=== PATIENT | female | born 1945 | race Caucasian/White ===

== ENCOUNTER 2018-07-30 12:45 | Outpatient (CLI) | payer MEDICARE ==
--- NOTE | 2018-07-30 14:27 | Ultrasound Report ---
Reason: LT BREAST MASTODYNIA , LT BREAST NODULE Procedure Date: 07/30/2018 Accession Number: [id number] / [id number] Procedure: US - Breast Unilateral Limited CPT Code: FULL RESULT: EXAM: Diagnostic Dig Bilat, Breast Unilateral Limited DATE: 07/30/2018 1:31 PM CLINICAL HISTORY: Left breast pain COMPARISON: 12/12/2016, 03/06/2015, 11/28/2013, 11/25/2012, 11/13/2011, 11/04/2011. BILATERAL MAMMOGRAPHY TECHNIQUE: Bilateral digital CC and MLO projections. Left true lateral. FINDINGS: There are scattered fibroglandular densities. There is a new 8 mm well-circumscribed round nodule in the 2:00 position left breast 7 cm from the nipple. Scattered benign-appearing calcifications as before. No architectural distortion or skin thickening. LEFT BREAST ULTRASOUND TECHNIQUE: Real-time scanning by the software release manager with saved static images reviewed. FINDINGS: Corresponding to the nodule seen by mammography is a 6 x 6 x 4 mm simple cyst left breast 2:00 position 7 cm from the nipple. No solid mass is seen. IMPRESSION: Benign findings RECOMMENDATION: Follow-up bilateral mammography in 12 months. BIRADS CATEGORY 2: Benign findings STANDARD QUALIFYING STATEMENTS: 1. This examination was reviewed with the aid of Computer-Aided Detection (CAD). 2. A negative or benign imaging report should not delay biopsy if clinically suspicious findings are present. Consider surgical consultation if warrented. More than 5% of cancers are not identified by imaging. 3. Dense breasts may obscure an underlying neoplasm.
== END 2018-07-30 12:46 | disposition home or self-care (01) ==
LOC: DI 12:45
PROVIDERS: ATTEND Internal Medicine
DX: N60.02 Solitary cyst of left breast (principal); N64.4 Mastodynia
CPT/HCPCS: 76642; 77066

== ENCOUNTER 2019-07-29 19:27 | Observation (INO) | payer MEDICARE, OTHER ==
[2019-07-29 20:09] LABS: BASOPHILS # (AUTO) 0.1 10^3/uL (0.0-0.1); BASOPHILS % (AUTO) 0.8 %; EOSINOPHILS # (AUTO) 0.2 10^3/uL (0.0-0.7); EOSINOPHILS % (AUTO) 2.1 %; LYMPHOCYTES % (AUTO) 33.7 %; MEAN CORPUSCULAR HEMOGLOBIN 30.4 pg (27.0-31.0); MEAN CORPUSCULAR HGB CONC 32.6 g/dL (32.0-36.0); MEAN CORPUSCULAR VOLUME 93.5 fL (81.0-99.0); MEAN PLATELET VOLUME 11.3 fL (7.9-10.8); MONOCYTES # (AUTO) 0.9 10^3/uL (0.0-1.0); MONOCYTES % (AUTO) 10.2 %; NEUTROPHILS # (AUTO) 4.7 10^3/uL (1.5-6.6); PLT - PLATELET COUNT 227 10^3/uL (130-450); RED CELL DISTRIBUTION WIDTH 13.2 % (12.0-15.0); WHITE BLOOD COUNT 8.9 x10^3/uL (4.8-10.8)
--- NOTE | 2019-07-29 20:13 | ED Physician Documentation ---
History of Present Illness - Stated complaint Stated Complaint: STROKE SYMPTOMS - Chief complaint Chief Complaint: General - Additonal information Additional information: This is a 73-year-old female with a history of tobacco use, who presents with 2 episodes of left-sided weakness and numbness. Patient states that one week ago she was at home when she suddenly developed some left-sided weakness, which was so severe that she could not move her foot despite trying. She also had numbness down the left side of her body, and she had a bit of slurred speech and potentially left-sided facial droop. This lasted around 30 minutes, and was witnessed by her who corroborates the story. After 30 minutes it resolved so patient decided that she was going to follow-up with her doctor. Today around 2 hours ago she once again developed similar numbness and weakness, but she states is not as severe as it was previously. She was driven here by her , and her symptoms improved during the ride, now she states she feels back to normal. She has never had a stroke, she denies any known history of diabetes or hypertension, though she states that she did many many years. No headache, no fever. Review of Systems Constitutional: denies: Fever Eyes: denies: Loss of vision Ears: denies: Loss of hearing Nose: denies: Rhinorrhea / runny nose Cardiac: denies: Chest pain / pressure Respiratory: denies: Dyspnea GI: denies: Abdominal Pain : denies: Dysuria Musculoskeletal: denies: Neck pain Neurologic: reports: Focal weakness Immunocompromised: denies: Immunocompromised PD PAST MEDICAL HISTORY - Past Medical History Past Medical History: Yes Cardiovascular: None Respiratory: COPD Neuro: None Endocrine/Autoimmune: None GI: None WORD PROCESSING MACHINE OPERATOR: None : None HEENT: None Psych: None Musculoskeletal: None Derm: None - Past Surgical History Past Surgical History: Yes /WORD PROCESSING MACHINE OPERATOR: Hysterectomy - Present Medications Home Medications: Ambulatory Orders Medication Instructions Recorded Confirmed Albuterol Sulfate [Proair Hfa 2 puffs INH Q4H PRN 07/30/19 07/30/19 Inhaler] Aspirin Chewable [St Pedrito 81 mg PO DAILY #30 tablet 07/30/19 Aspirin] Atorvastatin Calcium [Lipitor] 40 mg PO QPM #30 tablet 07/30/19 Nicotine 7 mg Patch [Nicoderm] 1 patch TOP DAILY #7 patch 07/30/19 amLODIPine [Norvasc] 5 mg PO DAILY #30 tablet 07/30/19 - Allergies Allergies/Adverse Reactions: Allergies Allergy/AdvReac Type Severity Reaction Status Date / Time No Known Drug Allergies Allergy Verified 07/29/19 19:47 - Social History Does the pt smoke?: Yes Smoking Status: Current every day smoker Does the pt drink ETOH?: No Does the pt have substance abuse?: No - Immunizations Immunizations are current?: No - POLST Patient has POLST: No PD ED PE NORMAL - Vitals Vital signs reviewed: Yes - General General: Alert and oriented X 3, No acute distress - HEENT HEENT: PERRL - Neck Neck: Supple, no meningeal sign - Cardiac Cardiac: RRR, No murmur - Respiratory Respiratory: Clear bilaterally - Abdomen Abdomen: Soft, Non tender, Non distended - Derm Derm: Warm and dry - Extremities Extremities: No deformity - Neuro Neuro: Other (Awake, alert, oriented to person, place, event. Speech fluent and articulate. CN: normal EOMI on H-testing, sensation to light touch intact and symmetric over V1,V2,V3. Face symmetric with smiling and eyebrow raise. No droop. Tongue protrudes in midline. All 4 quadrants of visual more in bilateral eyes are intact to finger counting. Motor: 5/5 strength with hand squeeze, finger abduction, elbow flexion and extension, shoulder abduction, hip flexion, ankle dorsiflexion and plantarflexion. Sensation: Intact to light touch over all extremities. Cerebellar: Normal finger to nose without dysmetria. Gait: Normal, narrow based gait.) - Psych Psych: Normal mood, Normal affect Results - Vitals Vitals: Oxygen O2 Source Room air - EKG (time done) 19:38 Other comments: Other comments (Rate 76, rhythm sinus. T wave inversions in the inferior and lateral leads. There is slight less than [address] elevation in V2. PVC is seen.) - Labs Labs: Laboratory Tests 07/29/19 07/29/19 07/29/19 19:57 19:57 19:57 WBC 8.9 RBC 4.60 Hgb 14.0 Hct 43.0 MCV 93.5 MCH 30.4 MCHC 32.6 RDW 13.2 Plt Count 227 MPV 11.3 H Neut # (Auto) 4.7 Lymph # (Auto) 3.0 [place] # (Auto) 0.9 Eos # (Auto) 0.2 Baso # (Auto) 0.1 Absolute Nucleated RBC 0.00 Nucleated RBC % 0.0 PT INR Sodium 142 Potassium 4.0 Chloride 104 Carbon Dioxide 27 Anion Gap 11.0 BUN 17 Creatinine 0.7 Estimated GFR (MDRD) 82 L Glucose 108 H Calcium 9.2 Total Bilirubin 0.4 AST 15 ALT 12 Alkaline Phosphatase 66 Troponin I High Sens 14.4 Total Protein 6.7 Albumin 3.8 Globulin 2.9 Albumin/Globulin Ratio 1.3 TSH 07/29/19 07/29/19 19:57 19:57 WBC RBC Hgb Hct MCV MCH MCHC RDW Plt Count MPV Neut # (Auto) Lymph # (Auto) [place] # (Auto) Eos # (Auto) Baso # (Auto) Absolute Nucleated RBC Nucleated RBC % PT 11.2 INR 1.0 Sodium Potassium Chloride Carbon Dioxide Anion Gap BUN Creatinine Estimated GFR (MDRD) Glucose Calcium Total Bilirubin AST ALT Alkaline Phosphatase Troponin I High Sens Total Protein Albumin Globulin Albumin/Globulin Ratio TSH 1.10 - Rads (name of study) CT head WO Radiology: Other (No acute abnormality) CXR Radiology: Other (No acute abnormality) PD MEDICAL DECISION MAKING - ED course Complexity details: considered differential (TIA, stroke, intracranial bleed, electrolyte abnormality, urinary tract infection) ED course: Patient presents with symptoms very concerning for TIA that have recurred once. No current deficits, she feels normal. She does have multiple risk factors for stroke and her ABCD2 score is moderate. CT head is negative, CXR negative and her work up is unremarkable other than she does have some non-specific EKG changes (but a negative troponin). Pt was admitted for an expedited work up and risk factor modification. She continued to appear well with no neurologic symptoms or exam findings at the time of admission. Departure - Departure Disposition: ED Place in Observation Clinical Impression: TIA (transient ischemic attack) Condition: Stable Discharge Date/Time: 07/29/19 23:35
[2019-07-29 20:17] LABS: ALBUMIN 3.8 g/dL (3.2-5.5); ALBUMIN/GLOBULIN RATIO 1.3 (1.0-2.2); BILIRUBIN,TOTAL 0.4 mg/dL (0.2-1.0); CALCIUM 9.2 mg/dL (8.5-10.3); CREATININE 0.7 mg/dL (0.4-1.0); TOTAL PROTEIN 6.7 g/dL (6.7-8.2)
[2019-07-29 20:28] LABS: PT - PROTHROMBIN TIME 11.2 secs (9.9-12.6)
--- NOTE | 2019-07-29 20:55 | CT Report ---
Reason: left sided weakness and numbness, resolved Procedure Date: 07/29/2019 Accession Number: [id number] / [id number] Procedure: CT - HEAD WO CPT Code: FULL RESULT: EXAM: CT HEAD EXAM DATE: 07/29/2019 08:34 PM. CLINICAL HISTORY: Left sided weakness and numbness, resolved. COMPARISON: None. TECHNIQUE: Multiaxial CT images were obtained from the foramen magnum to the vertex. Reformats: Sagittal and coronal. IV contrast: None. In accordance with CT protocol optimization, one or more of the following dose reduction techniques were utilized for this exam: automated exposure control, adjustment of mA and/or KV based on patient size, or use of iterative reconstructive technique. FINDINGS: Parenchyma: No intraparenchymal hemorrhage. No evidence of mass, midline shift, or CT findings of acute infarction. There is mild ventricular white matter hypoattenuation. Britton-white differentiation is distinct. Mild right basal ganglia mineralization. Extraaxial Spaces: Normal for age. No subdural or epidural collections identified. Ventricles: Normal in size and position. Sinuses and Orbits: Imaged paranasal sinuses, orbits, and mastoids show no significant abnormality. Bones: No evidence of fracture or calvarial defect. Other: None. IMPRESSION: No acute intracranial abnormality. RADIA
--- NOTE | 2019-07-29 20:56 | XRAY Report ---
Reason: chest pain Procedure Date: 07/29/2019 Accession Number: [id number] / [id number] Procedure: XR - Chest 1 View X-Ray CPT Code: 20212 FULL RESULT: EXAM: CHEST RADIOGRAPHY EXAM DATE: 07/29/2019 08:34 PM. CLINICAL HISTORY: Chest pain. COMPARISON: 05/30/2013 2:50 PM. TECHNIQUE: 1 view. FINDINGS: Lungs/Pleura: No focal consolidation. Biapical pleural-parenchymal scarring. No pleural effusion. No pneumothorax. Mediastinum: Within exam limitations, the cardiomediastinal contour is normal. Other: None. IMPRESSION: No acute findings. RADIA
[2019-07-29] MEDS ORDERED: ACETAMINOPHEN 325 MG TABLET PO PRN (22:14)
[2019-07-29] MEDS ORDERED: ONDANSETRON 4 MG/2 ML VIAL IVP PRN (22:14)
[2019-07-29] MEDS ORDERED: SODIUM CHLORIDE FLUSH 0.9% 10 ML SYRINGE IVP PRN (22:14)
--- NOTE | 2019-07-29 22:30 | HISTORY & PHYSICAL EXAMINATION ---
Chief Complaint - Chief Complaint Chief Complaint: Left sided weakness History of Present Illness - Admitted From Admitted From:: Home - History Obtained From Records Reviewed: Yes History obtained from: Patient, ER Physician - History of Present Illness HPI Comment/Other: This is a 73 year old female with a past medical history significant for COPD and tobacco use who presents from home today after developing left sided weakness. She states she had similar symptoms exactly one week ago. At that time, she had left sided upper and lower extremity to the point where she could move her arm or leg. She also had slurred speech at that time and her noticed the left side of her face had a droop. Her symptoms resolved after 30 minutes and so she did not head to the ER. She called her PCP to make an appointment for follow up which is scheduled on the of this month. Today, she had similar symptoms but not as severe as last week. She did not have a facial droop or slurred speech this time. She did have upper and lower extremity weakness of the left side but she was able to move her extremities a little. Once again, these symptoms occurred for 30 minutes before resolving but because this was the second episode, she seeked medical attention. She reports no prior history of hypertension, diabetes, or stroke. She does smoke 10 cigarettes a day. She tried quitting in the past by using Chantix and Nicotine patch/gum but was unsuccessful as her also smokes. She reports no headache, blurry vision, chest pain, dyspnea, numbness, tingling. In the ER, she was slightly hypertensive but otherwise her vitals were unremarkable. Her labs were unremarkable as well. CT of the head showed no acute process but did she mineralization of the right basal ganglia. She will be admitted for further management. Of note, I spoke with the patient regarding code status. She wishes to be a full code. History - Past Medical History Cardiovascular: reports: None Respiratory: reports: COPD Neuro: reports: None Endocrine/Autoimmune: reports: None GI: reports: None SUPERVISOR REFRACTORY PRODUCTS: reports: None : reports: None HEENT: reports: None Psych: reports: None Musculoskeletal: reports: None Derm: reports: None MRSA Hx?: No - Past Surgical History /SUPERVISOR REFRACTORY PRODUCTS: reports: Hysterectomy - Family & Social History Family History Comment/Other: She reports her father had lung surgery for a reason she cannot recall. He was a smoker. She does not recall any other family history. Social History Notes: She has lived on [facility] with her for the past 15 years. Two of her sons also live here. She previously lived in [facility] but is originally from [place]. She is not currently employed but previously worked as a real estate firm manager. She smokes 10 cigarettes a day for the past 55 years. Denies alcohol and drug use. - POLST Patient has POLST: No Meds/Allgy - Home Medications Home Medications: Ambulatory Orders Medication Instructions Recorded Confirmed Albuterol Sulfate [Proair Hfa 07/30/19 Inhaler] - Allergies Allergies/Adverse Reactions: Allergies Allergy/AdvReac Type Severity Reaction Status Date / Time No Known Drug Allergies Allergy Verified 07/29/19 19:47 Review of Systems - Constitutional Constitutional: reports: Weakness. denies: Fatigue, Fever, Chills - Eyes Eyes: denies: Blurred vision - Cardiovascular Cariovascular: denies: Chest pain, Edema, Exertional dyspnea, Decr. exercise tolerance - Respiratory Respiratory: denies: Cough, SOB at rest, SOB with exertion - Gastrointestinal Gastrointestinal: denies: Abdominal pain, Diarrhea, Nausea, Vomiting - Genitourinary Genitourinary: denies: Dysuria, Frequency, Urgency - Musculoskeletal Musculoskeletal: reports: Muscle weakness - Neurological Neurological: reports: Focal weakness, Abnormal gait. denies: Headache, Dizziness, Numbness - All Other Systems All Other Systems: reports: Reviewed and negative Prior Level of Functionality: Independent with ADL's. Exam - Vital Signs Vital Signs: Vital Signs x48h Temp Pulse Resp BP Pulse Ox 07/29/19 22:17 36.3 C L 87 20 116/56 L 97 07/29/19 20:50 72 16 149/88 H 97 07/29/19 20:36 16 07/29/19 19:55 88 16 136/73 H 98 07/29/19 19:44 36.6 C 81 18 157/84 H 98 - Physical Exam General Appearance: positive: No acute distress, Alert, Mild distress Eyes Bilateral: positive: Normal inspection, EOMI, Conjunctivae nml ENT: positive: ENT inspection nml Neck: positive: Nml inspection Respiratory: positive: No respiratory distress, Breath sounds nml. negative: Wheezes, Rales, Rhonchi Cardiovascular: positive: Regular rate & rhythm, No murmur. negative: Tachycardia, Bradycardia, Systolic murmur Abdomen: positive: Non-tender, No distention. negative: Tenderness, Guarding, Rebound Skin: positive: No rash, Warm, Dry Extremities: positive: Full ROM, No pedal edema Neurologic/Psychiatric: positive: Oriented x3, CN's nml (2-12), Motor nml, Sensation nml. negative: Disoriented to person, Disoriented to place, Disoriented to time, Weakness, Sensory loss, Facial droop, Slurred/abnml speech Conclusion/Plan - Problem List (1) TIA (transient ischemic attack) Conclusion/Plan: Her symptoms of left sided upper and lower extremity weakness are concerning for a TIA. Fortunately her symptoms have resolved. Her CT was negative except for mineralization of the right basal ganglia. This is now her second episode of similar symptoms occurring on the same side. - Start Aspirin 81mg and Lipitor 40mg - Carotid dopplers - Echo - Check A1c and lipid panel - Neurochecks - PT/OT - She will require MRI on outpatient basis as it is not available over the weekend at this facility (2) Hypertension Conclusion/Plan: She is hypertensive today and is not on medications. - Will start Norvasc 5mg (3) COPD (chronic obstructive pulmonary disease) Conclusion/Plan: On Proair at home. Stable. - Albuterol PRN (4) Tobacco abuse Conclusion/Plan: She continues to smoke 10 cigarettes a day for the past 55 years. Failed treatment in the past with Chantix and Nicorette gum/patch. - Nicotine patch while inpatient - Lab Results Lab results reviewed: Yes Fish Bones: 07/29/19 19:57 07/29/19 19:57 - Diagnostic Imaging Results Diagnostic Imaging Results: positive: Final report reviewed - EKG Results EKG Interpreted Independently: Yes EKG Comparison: No prior EKG EKG Findings: Sinus rhythm with occasional PVC. T-wave inversions in most leads. No pathologic Q waves noted. Core Measures - Anticipated LOS I expect patient to be DC'd or transferred within 96 hours.: Yes - Issues Hospital Issues and Management Plan: TIA requiring further workup inculding Echo, carotid dopplers. - DVT/VTE - Prophylaxis VTE/DVT Device ordered at admit?: Yes VTE/DVT Prophylaxis med ordered at admit?: Yes
[2019-07-30] MEDS ORDERED: IPRATROPIUM/ALBUTEROL 3 ML NEB INH PRN (00:21)
--- NOTE | 2019-07-30 00:26 | Ultrasound Report ---
Reason: TIA. Left sided weakness. Procedure Date: 07/29/2019 Accession Number: [id number] / [id number] Procedure: US - Carotid Doppler Complete CPT Code: FULL RESULT: EXAM: BILATERAL CAROTID AND VERTEBRAL ARTERY DUPLEX DOPPLER ULTRASOUND: EXAM DATE: 07/29/2019 11:19 PM CLINICAL HISTORY: TIA. Left-sided weakness. COMPARISON: None. TECHNIQUE: Grayscale imaging, color Doppler, and duplex spectral Doppler were used to evaluate the carotid and vertebral arteries bilaterally. Static images were obtained. FINDINGS: Irregular calcified carotid plaquing is seen bilaterally. Normal antegrade flow is present in bilateral vertebral arteries. VELOCITIES (cm/sec): Right CCA mid: PSV 68 cm/sec CCA dist: PSV 50 cm/sec ICA prox: PSV 46 cm/sec, EDV 14 cm/sec ICA mid: PSV 70.1 cm/sec, EDV 23 cm/sec ICA dist: PSV 45 cm/sec, EDV 15 cm/sec ECA: PSV 71 cm/sec Vert: PSV 46 cm/sec ICA/CCA: 1.0 Left CCA mid: PSV 89 cm/sec CCA dist: PSV 48 cm/sec ICA prox: PSV 36 cm/sec, EDV 13 cm/sec ICA mid: PSV 63 cm/sec, EDV 26 cm/sec ICA dist: PSV 40 cm/sec, EDV 15 cm/sec ECA: PSV 100 cm/sec Vert: PSV 87 cm/sec ICA/CCA: 0.7 ICA diameter stenosis: Right: <50% by velocity and <70% by NASCET criteria. Left: <50% by velocity and <70% by NASCET criteria. IMPRESSION: 1. Irregular calcified bilateral carotid artery plaquing. 2. In the right carotid artery there are no elevated carotid artery velocities to suggest hemodynamically significant stenosis. 3. In the left carotid artery there are no elevated carotid artery velocities to suggest hemodynamically significant stenosis. 4. Normal antegrade flow is present in bilateral vertebral arteries. General Recommendations: Stenosis =50% ICA - Follow-up ultrasound 6-12 months Stenosis <50% ICA - High Risk Patient with plaque - Follow-up ultrasound 1-2 years Normal Study but High Risk Patient - Follow-up ultrasound 3-5 years Management recommendations and diagnostic criteria are based on current IAC endorsed standards in Carotid Artery Stenosis: Grayscale and Doppler Ultrasound Diagnosis. Validated velocity measurements with angiographic measurements and velocity criteria are extrapolated from diameter data as defined by the Society of Radiologists in Ultrasound Consensus Conference Radiology 2003; 229;340-346. RADIA
[2019-07-30] MEDS: SODIUM CHLORIDE FLUSH 0.9% 10 ML SYRINGE IVP SCH ×3 (03:56→16:57)
[2019-07-30 04:38] LABS: BASOPHILS # (AUTO) 0.1 10^3/uL (0.0-0.1); BASOPHILS % (AUTO) 0.8 %; EOSINOPHILS # (AUTO) 0.3 10^3/uL (0.0-0.7); EOSINOPHILS % (AUTO) 3.8 %; HGB - HEMOGLOBIN 13.5 g/dL (12.0-16.0); LYMPHOCYTES # (AUTO) 2.7 10^3/uL (1.5-3.5); LYMPHOCYTES % (AUTO) 36.3 %; MEAN CORPUSCULAR HEMOGLOBIN 30.8 pg (27.0-31.0); MEAN CORPUSCULAR HGB CONC 32.9 g/dL (32.0-36.0); MEAN CORPUSCULAR VOLUME 93.6 fL (81.0-99.0); MONOCYTES # (AUTO) 0.7 10^3/uL (0.0-1.0); MONOCYTES % (AUTO) 9.9 %; NEUTROPHILS # (AUTO) 3.6 10^3/uL (1.5-6.6); NEUTROPHILS % (AUTO) 48.9 %; PLT - PLATELET COUNT 200 10^3/uL (130-450); RED BLOOD COUNT 4.38 10^6/uL (4.20-5.40); RED CELL DISTRIBUTION WIDTH 12.9 % (12.0-15.0); WHITE BLOOD COUNT 7.3 x10^3/uL (4.8-10.8)
[2019-07-30 04:55] LABS: BUN - BLOOD UREA NITROGEN 13 mg/dL (6-20); CALCIUM 8.7 mg/dL (8.5-10.3); CARBON DIOXIDE - CO2 28 mmol/L (21-32); CHLORIDE 105 mmol/L (101-111); CHOL/HDL RATIO 3.7 (<4.4); CHOLESTEROL 193 mg/dL; CREATININE 0.6 mg/dL (0.4-1.0); GFR - MDRD 98 (>89); GLUCOSE 100 mg/dL (70-100); HDL CHOLESTEROL 52 mg/dL; LDL CHOLESTEROL,CALCULATED 126 mg/dL; LDL/HDL RATIO 2.4 (<4.4); MAGNESIUM 2.2 mg/dL (1.7-2.8); SODIUM 141 mmol/L (135-145); VLDL CHOLESTEROL 15 mg/dL
[2019-07-30 05:16] LABS: HB2 TOTAL 14.2 g/dL; HEMOGLOBIN A1C 0.52 g/dL; HEMOGLOBIN A1C % 5.5 % (4.6-6.2)
[2019-07-30 08:15] VITALS: BP 126/70
[2019-07-30] MEDS ORDERED: ASPIRIN EC 81 MG TABLET PO SCH (09:00)
[2019-07-30] MEDS ORDERED: HEPARIN 5,000 UNIT/ML VIAL SUBQ SCH (09:00)
[2019-07-30] MEDS ORDERED: NICOTINE 7 MG PATCH TOP SCH (09:00)
[2019-07-30] MEDS ORDERED: amLODIPine 5 MG TABLET PO SCH (09:00)
--- NOTE | 2019-07-30 15:36 | MRI Report ---
Reason: TIAs Procedure Date: 07/30/2019 Accession Number: [id number] / [id number] Procedure: MRI - Angio Brain W/O (MRA) CPT Code: FULL RESULT: EXAM MRA BRAIN EXAM DATE: 07/30/2019 03:16 PM. CLINICAL HISTORY: 73-year-old female. TIAs. COMPARISON: CT head 07/29/2019 TECHNIQUE: Multiplanar, multisequence MRA sequences of the brain were performed. Other: None. Post-processing: Multiplanar 3D MIP reconstructions. IV Contrast: None. FINDINGS: RIGHT Internal Carotid (ICA): No aneurysm, stenosis or anomaly. Middle Cerebral (MCA): No aneurysm, stenosis or anomaly. Anterior Cerebral (MELECIO): No aneurysm, stenosis or anomaly. 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 Posterior Communicating (P-COM): Not visualized, aplastic versus markedly hypoplastic Vertebral: No aneurysm, stenosis or anomaly in the visualized upper vertebral artery. LEFT Internal Carotid (ICA): The cervical left ICA is tortuous but otherwise unremarkable. No aneurysm, stenosis or anomaly. Middle Cerebral (MCA): No aneurysm, stenosis or anomaly. Anterior Cerebral (MELECIO): No aneurysm, stenosis or anomaly. Posterior Cerebral (SHOW HOST OR HOSTESS): Tandem stenoses of the left SHOW HOST OR HOSTESS P2 and P3 segments, including severe, likely greater than 70% stenoses. Posterior Communicating (P-COM): Not visualized, aplastic versus markedly hypoplastic Vertebral: No aneurysm, stenosis or anomaly in the visualized upper vertebral artery. MIDLINE Anterior Communicating (A-COM): No aneurysm, stenosis or anomaly. Basilar Artery:No aneurysm, stenosis or anomaly. Other: None. IMPRESSION: 1. No evidence of large vessel occlusion, acute dissection, aneurysm, or vascular malformation within intracranial arteries. 2. 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 3. Tandem stenoses of the left SHOW HOST OR HOSTESS P2 and P3 segments, including severe, likely greater than 70% stenoses. RADIA
--- NOTE | 2019-07-30 15:43 | Discharge Plan ---
Discharge Plan Problem Reviewed?: Yes Disposition: Home, Self Care Condition: Stable Prescriptions: amLODIPine [Norvasc] 5 mg PO DAILY #30 tablet Aspirin Chewable [St Pedrito Aspirin] 81 mg PO DAILY #30 tablet Atorvastatin Calcium [Lipitor] 40 mg PO QPM #30 tablet Nicotine 7 mg Patch [Nicoderm] 1 patch TOP DAILY #7 patch Diet: Cardiac Activity Restrictions: Activity as Tolerated Shower Restrictions: No Driving Restrictions: No Instruction Topics: Meds Cholesterol, TIA, ED Hypertension New Begin Tx Health Concerns: Hospitalized with a recurrence of TIA (mini stroke) symptoms. Evaluation here found that you have Hypertension, elevated cholesterol and smoking cigarettes which caused blood vessel narrowing in the brain which caused the symptoms. Plan of Treatment: New medications prescribed for high BP, smoking cessation patch and high cholesterol, and were electronically sent to your [facility]. Please buy any [id number] brand of coated aspirin 81 mg or chewable baby aspirin and start taking 1 aspirin a day, lifelong. Please see your PCP in follow-up. You may need a referral to a Neurologist (brain specialist). Care Goals: Improved risk factors to decrease chance of stroke. Assessment: Discussed with patient who understood. Additional Instructions or Follow Up instructions: Please see your PCP in 5-10 days for follow-up, medication adjustments and further recommendations. If you have new or worsening symptoms, call your PCP for advice or come to the ER. No Smoking: If you smoke, Please STOP! Call for help. Follow-up with: Bridgette Vines ARNP [Primary Care Provider] -
--- NOTE | 2019-07-30 16:28 | MRI Report ---
Reason: TIA, recurrent Procedure Date: 07/30/2019 Accession Number: [id number] / [id number] Procedure: MRI - Brain W/O CPT Code: FULL RESULT: EXAM: MRI BRAIN WITHOUT CONTRAST EXAM DATE: 07/30/2019 03:16 PM. CLINICAL HISTORY: 73-year-old female. TIA, recurrent. COMPARISON: CT head 07/29/2019 TECHNIQUE: Multiplanar, multisequence T1-weighted and fluid-sensitive MR sequences of the brain were performed. Sequences optimized for routine evaluation. Other: None. IV Contrast: None. FINDINGS: Brain Volume: Mild to moderate ex-vacuo dilatation of the ventricles and sulci. Parenchyma/Dura: Subacute approximately 1 cm infarcts involving the right alberto radiata and right basal ganglia, as evidenced by foci of restricted diffusion (series 505 images 112 and 88), with normalized ADC values and associated FLAIR hyperintense signal abnormality. The infarcts are likely greater than one week old. No MRI evidence of acute infarct. No mass or hemorrhage. Moderately extensive T2/FLAIR hyperintense periventricular, deep, and subcortical white matter lesions within cerebral hemispheres bilaterally and within the antonio centrally. Chronic lacunar infarcts within basal ganglia bilaterally with chronic hemosiderin staining within the right basal ganglia (series 801 image 11). Ventricles/Cisterns: No hydrocephalus. No abnormal extra-axial fluid collection or hemorrhage. Orbits: Status post bilateral lens replacement surgery. The visualized orbits otherwise unremarkable. Sella Turcica: The pituitary gland, cavernous sinuses, suprasellar cistern and optic chiasm are unremarkable. IAC: Symmetric and unremarkable. Vasculature: Normal signal flow void is seen in the major arterial structures at the skull base. Sinuses: No acute appearing sinus disease. Bones: No focal pathologic appearing marrow signal changes. Other: None. IMPRESSION: 1. Subacute approximately 1 cm infarcts involving the right alberto radiata and right basal ganglia, as evidenced by foci of restricted diffusion (series 505 images 112 and 88), with normalized ADC values and associated FLAIR hyperintense signal abnormality. The infarcts are likely greater than one week old. 2. No MRI evidence of acute infarct. No evidence of acute intracranial hemorrhage. 3. Moderately extensive T2/FLAIR hyperintense periventricular, deep, and subcortical white matter lesions within cerebral hemispheres bilaterally and within the antonio centrally. While nonspecific, these are favored to represent sequela of chronic microangiopathy. 4. Chronic lacunar infarcts within basal ganglia bilaterally with chronic hemosiderin staining within the right basal ganglia (series 801 image 11). RADIA The critical result notification system was initiated by Dr. Benson Amaya at 04:23 PM on 07/30/2019. ADDENDUM: 07/30/19 16:28 The above critical result findings were discussed with Kae Brooks by Dr. Benson Amaya at 04:28 PM on 07/30/2019.
--- NOTE | 2019-07-30 16:51 | MRI Report ---
Reason: TIAs Procedure Date: 07/30/2019 Accession Number: [id number] / [id number] Procedure: MRI - Angio Neck W/O (MRA) CPT Code: FULL RESULT: EXAM: MR ANGIOGRAM NECK EXAM DATE: 07/30/2019 04:17 PM. CLINICAL HISTORY: 73-year-old female. TIAs. COMPARISON: MRI brain and MRA head obtained currently TECHNIQUE: Multiplanar, multisequence MRA sequences of the neck were performed. Other: None. Post-processing: Multiplanar 3D MIP reconstructions. IV Contrast: None. Evaluation of arterial stenosis is based on a NASCET method of measurement. FINDINGS: This is a limited noncontrast MRA of the neck. RIGHT Common Carotid: Patent. No dissection or significant stenosis. Internal Carotid: Patent. No dissection or significant stenosis. External Carotid: Patent. No dissection or significant stenosis. Vertebral: Patent. No dissection or significant stenosis. LEFT Common Carotid: Patent. No dissection or significant stenosis. Internal Carotid: Patent. No dissection or significant stenosis. External Carotid: Patent. No dissection or significant stenosis. Vertebral: Patent. No dissection or significant stenosis. Intracranial Circulation: Concurrently obtained MRA head is dictated separately. Other: The soft tissues, bones, and lung apices are unremarkable. IMPRESSION: 1. This is a limited noncontrast MRA of the neck. Given this limitation, no definite hemodynamically significant narrowing or occlusion. 2. Concurrently obtained MRA head is dictated separately. RADIA
[2019-07-30] MEDS ORDERED: ATORVASTATIN 40 MG TABLET PO SCH (21:00)
--- NOTE | 2019-08-01 16:00 | DISCHARGE SUMMARY ---
Discharge Summary Admit Date: 07/29/19 Discharge Date: 07/30/19 Discharging Provider: Dr Kae Brooks Primary Care Provider: Bridgette Vines NP Code Status: Attempt Resuscitation Condition at Discharge: Stable Discharge Disposition: 01 Home, Self Care - DIAGNOSES Admission Diagnoses: 1) TIA 2) Tobacco use 3) HTN, uncontrolled Discharge Diagnoses with Status of Each Condition: See below - HPI History of Present Illness: From the admission H&P of Dr Rasheed Allen: This is a 73 year old female with a past medical history significant for COPD and tobacco use who presents from home today after developing left sided weakness. She states she had similar symptoms exactly one week ago. At that time, she had left sided upper and lower extremity weakness to the point where she could not move her arm or leg. She also had slurred speech at that time and her noticed the left side of her face had a droop. Her symptoms resolved after 30 minutes and so she did not head to the ER. She called her PCP to make an appointment for follow up which is scheduled on the of this month. Today, she had similar symptoms but not as severe as last week. She did not have a facial droop or slurred speech this time. She did have upper and lower extremity weakness of the left side but she was able to move her extremities a little. Once again, these symptoms occurred for 30 minutes before resolving but because this was the second episode, she sought medical attention. She reports no prior history of hypertension, diabetes, or stroke. She does smoke 10 cigarettes a day. She tried quitting in the past by using Chantix and Nicotine patch/gum but was unsuccessful as her also smokes. She reports no headache, blurry vision, chest pain, dyspnea, numbness, tingling. In the ER, she was hypertensive but otherwise her vitals were unremarkable. Her labs were unremarkable as well. CT of the head showed no acute process but did show mineralization of the right basal ganglia. She will be admitted for further management. - HOSPITAL COURSE Hospital Course: (1) TIA (transient ischemic attack) Her symptoms of left sided upper and lower extremity weakness were consistent with a TIA. She was told she had a "mini stroke". Her CT was negative except for mineralization of the right basal ganglia. She was started on Aspirin 81mg daily and empiric Lipitor 40mg qpm. Telemetry showed no episodes of Afib. She had an Echo that showed no clot and no intra-cardiac shunt and normal LVEF. Carotid Dopplers showed bilateral plaques but no hemodynamically significant stenoses. We were fortunate to have MRI available on a Thursday at this facility, and she had a brain MRI and MRA of the head and neck. They showed chronic intracerebral microangiopathy, chronic lacunar infarcts of the basal ganglia bilaterally, a subacute infract of the right alberto radiata and rright basal ganglion (which may have been the symptom of 1 week previously), Right PENAL OFFICER, P2 and P3 segments with 70% stenosis, also Left PENAL OFFICER, P2 and P3 segments with 70% stenosis, no large vessel occlusions, no hemorrhage or mid-line shift. She was advised of her risk factors to improve, to decrease chance of recurrence and she was discharged on new daily aspirin and Lipitor. (2) Hypertension She had BPs of 150's/88, and was started on anti-hypertensive treatment with Norvasc 5mg daily, and discharged on this. (3) COPD (chronic obstructive pulmonary disease) She was using Proair at home and Albuterol PRN was ordered here, but she was stable without wheezing or a COPD exacerbation. She was advised to again stop smoking. (4) Tobacco abuse She had resumed smoking after quitting briefly, and smoked about 10 cigarettes a day for the past 55 years. A Nicotine patch was prescribed while an inpatient and at discharge. (5) Elevated cholesterol Her fasting cholesterol results showed poor control: Total cholesterol 193, LDL 126, Triglycerides 73 and HDL 52. She was put on Lipitor and was advised the dietary changes she should make. (6) PVD For the findings of vascular stenoses seen by brain MRA, she was advised to remain on daily aspirin and Lipitor and to have better HTN control. She was a dvised to have follow-up with her PCP within a week, and she may want further management with a Neurologist. - ALLERGIES Allergies/Adverse Reactions: Allergies Allergy/AdvReac Type Severity Reaction Status Date / Time No Known Drug Allergies Allergy Verified 07/29/19 19:47 - MEDICATIONS Home Medications: Ambulatory Orders Medication Instructions Recorded Confirmed Albuterol Sulfate [Proair Hfa 2 puffs INH Q4H PRN 07/30/19 07/30/19 Inhaler] Aspirin Chewable [St Pedrito 81 mg PO DAILY #30 tablet 07/30/19 Aspirin] Atorvastatin Calcium [Lipitor] 40 mg PO QPM #30 tablet 07/30/19 Nicotine 7 mg Patch [Nicoderm] 1 patch TOP DAILY #7 patch 07/30/19 amLODIPine [Norvasc] 5 mg PO DAILY #30 tablet 07/30/19 - PHYSICAL EXAM AT DISCHARGE General Appearance: positive: No acute distress Eyes Bilateral: positive: Normal inspection, PERRL ENT: positive: ENT inspection nml Neck: positive: Nml inspection, No JVD Respiratory: positive: No respiratory distress Cardiovascular: positive: Regular rate & rhythm, No murmur Abdomen: positive: Non-tender, No distention Skin: positive: Color nml Extremities: positive: No pedal edema - LABS Result Diagrams: 07/30/19 04:31 07/30/19 04:31 - DIAGNOSTIC IMAGING Diagnostic Imaging Results: Final report reviewed, Discussed with radiologist - FOLLOW UP Follow Up: See Dr Parker Kidd in 1 week, possible referral to a Neurologist. - TIME SPENT Time Spent in Discharge (Minutes): 40
== END 2019-07-30 17:15 | disposition home or self-care (01) ==
LOC: ED 19:27 → MS3 22:14
PROVIDERS: ADMIT Internal Medicine; ATTEND Internal Medicine
DX: G45.9 Transient cerebral ischemic attack, unspecified (principal); I66.23 Occlusion and stenosis of bilateral posterior cerebral arteries; I10 Essential (primary) hypertension; J44.9 Chronic obstructive pulmonary disease, unspecified; F17.210 Nicotine dependence, cigarettes, uncomplicated; E78.00 Pure hypercholesterolemia, unspecified; I73.9 Peripheral vascular disease, unspecified; Z79.899 Other long term (current) drug therapy; Z86.73 Personal history of transient ischemic attack (TIA), and cerebral infarction without residual deficits
CPT/HCPCS: 36415; 70450; 70544; 70547; 71045; 80048; 80061; 83036; 83735; 84484; 85025; 85610; 93005; 93306; 93880; 99285; A9270; G0378; 70551; 80053; 83721; 84443

== ENCOUNTER 2019-08-01 12:20 | Inpatient (IN) | payer MEDICARE, OTHER ==
[2019-08-01 13:22] LABS: BASOPHILS % (AUTO) 0.5 %; EOSINOPHILS # (AUTO) 0.1 10^3/uL (0.0-0.7); EOSINOPHILS % (AUTO) 1.5 %; HGB - HEMOGLOBIN 15.1 g/dL (12.0-16.0); LYMPHOCYTES % (AUTO) 24.6 %; MEAN CORPUSCULAR HEMOGLOBIN 30.9 pg (27.0-31.0); MEAN CORPUSCULAR VOLUME 93.6 fL (81.0-99.0); MEAN PLATELET VOLUME 11.2 fL (7.9-10.8); MONOCYTES # (AUTO) 0.7 10^3/uL (0.0-1.0); MONOCYTES % (AUTO) 8.8 %; NEUTROPHILS # (AUTO) 5.2 10^3/uL (1.5-6.6); NEUTROPHILS % (AUTO) 64.2 %; PLT - PLATELET COUNT 250 10^3/uL (130-450); RED BLOOD COUNT 4.88 10^6/uL (4.20-5.40); RED CELL DISTRIBUTION WIDTH 13.1 % (12.0-15.0); WHITE BLOOD COUNT 8.1 x10^3/uL (4.8-10.8)
[2019-08-01 13:41] LABS: ALBUMIN 3.8 g/dL (3.2-5.5); ALBUMIN/GLOBULIN RATIO 1.2 (1.0-2.2); BILIRUBIN,TOTAL 0.4 mg/dL (0.2-1.0); CALCIUM 9.5 mg/dL (8.5-10.3); CREATININE 0.6 mg/dL (0.4-1.0); TOTAL PROTEIN 7.1 g/dL (6.7-8.2)
--- NOTE | 2019-08-01 14:14 | ED Physician Documentation ---
PD HPI FOCAL NEURO - Stated complaint Stated Complaint: WEAKNESS - Chief complaint Chief Complaint: Neuro - History obtained from History obtained from: Patient, Family - History of Present Illness Severity of deficit: Moderate Weakness: Face, Arm, Leg, Left Numbness: No: Face, Arm, Hand, Leg, Foot, Right, Left, Other Associated symptoms: Headache. No: Nausea / vomiting, Seizure, Syncope, Fall, Head injury, Chest pain, Neck pain, Back pain, Fever Baseline status: positive: A&OX3, ambulatory, indep Recently seen: Admitted (2 days ago for same) - Additional information Additional information: 73-year-old female presents to the emergency department left-sided weakness and speech difficulties today. Similar symptoms were occurring on Thursday, she was admitted to the hospital, symptoms resolved and she was discharged home the next day after MRI and MRA. She states that the symptoms have been coming and going since that time but seem to stay today. She had a headache this morning as well. She states that the symptoms finally became more persistent around 11:00 this morning. Review of Systems Ten Systems: 10 systems reviewed and negative Constitutional: denies: Fever, Chills Nose: denies: Rhinorrhea / runny nose, Congestion Throat: denies: Sore throat Cardiac: denies: Chest pain / pressure Respiratory: denies: Cough GI: denies: Nausea, Vomiting, Diarrhea Skin: denies: Rash Musculoskeletal: denies: Neck pain, Back pain Neurologic: denies: Focal weakness, Numbness, Headache PD PAST MEDICAL HISTORY - Past Medical History Cardiovascular: None Respiratory: COPD Neuro: None Endocrine/Autoimmune: None GI: None BOTTLER: None : None HEENT: None Psych: None Musculoskeletal: None Derm: None - Past Surgical History Past Surgical History: Yes /BOTTLER: Hysterectomy - Present Medications Home Medications: Ambulatory Orders Medication Instructions Recorded Confirmed Albuterol Sulfate [Proair Hfa 2 puffs INH Q4H PRN 07/30/19 07/30/19 Inhaler] Aspirin Chewable [St Pedrito 81 mg PO DAILY #30 tablet 07/30/19 Aspirin] Atorvastatin Calcium [Lipitor] 40 mg PO QPM #30 tablet 07/30/19 Nicotine 7 mg Patch [Nicoderm] 1 patch TOP DAILY #7 patch 07/30/19 amLODIPine [Norvasc] 5 mg PO DAILY #30 tablet 07/30/19 - Allergies Allergies/Adverse Reactions: Allergies Allergy/AdvReac Type Severity Reaction Status Date / Time No Known Drug Allergies Allergy Verified 07/29/19 19:47 - Social History Does the pt smoke?: Yes Smoking Status: Current every day smoker Does the pt drink ETOH?: No Does the pt have substance abuse?: No - Immunizations Immunizations are current?: No - POLST Patient has POLST: No PD ED PE NORMAL - Vitals Vital signs reviewed: Yes - General General: Alert and oriented X 3, No acute distress - HEENT HEENT: PERRL, Moist mucous membranes, Pharynx benign - Neck Neck: Supple, no meningeal sign - Cardiac Cardiac: RRR - Respiratory Respiratory: No respiratory distress, Clear bilaterally - Abdomen Abdomen: Soft, Non tender, Non distended - Back Back: No spinal TTP - Derm Derm: Warm and dry - Extremities Extremities: No deformity, No tenderness to palpate - Neuro Neuro: Alert and oriented X 3 Eye Opening: Spontaneous Motor: Obeys Commands Verbal: Oriented GCS Score: 15 - Psych Psych: Normal mood, Normal affect NIHSS - Time Time: 13:20 - Level of Consciousness Level of consciousness: (0) Alert, Keenly responsive LOC Questions: (0) Answers both Q's correct LOC Commands: (0) Performs both correctly - Gaze Best Gaze: (0) Normal - Visual Visual: (0) No loss - Facial Palsy Facial Palsy: (1) Minor paralysis - Motor Arms (both separate) Motor Arm (right): (0) No drift Motor Arm (left): (1) Drift - Motor Legs (both separate) Motor Leg (right): (0) No drift Motor Leg (left): (1) Drift - Limb Ataxia Limb Ataxia: (0) Absent - Sensory Sensory: (0) Normal - Best Language Best Language: (1) [id number] - Dysarthria Dysarthria: (1) [id number] dysarthria - Extinction and Inattention (formally neg Extinction and inattention: (0) No abnormality - Total Score/Results Total Score/Result: 5 Results - Vitals Vitals: Vital Signs - 24 hr 08/01/19 08/01/19 08/01/19 12:30 13:00 14:57 Temperature 36.1 C L 36.8 C Heart Rate 83 84 77 Respiratory 18 16 22 Rate Blood Pressure 113/64 125/49 L 130/82 H O2 Saturation 96 94 94 08/01/19 16:00 Temperature Heart Rate 75 Respiratory 20 Rate Blood Pressure 138/77 H O2 Saturation 94 Oxygen O2 Source Room air - Labs Labs: Laboratory Tests 08/01/19 08/01/19 08/01/19 13:10 13:10 15:00 WBC 8.1 RBC 4.88 Hgb 15.1 Hct 45.7 MCV 93.6 MCH 30.9 MCHC 33.0 RDW 13.1 Plt Count 250 MPV 11.2 H Neut # (Auto) 5.2 Lymph # (Auto) 2.0 [place] # (Auto) 0.7 Eos # (Auto) 0.1 Baso # (Auto) 0.0 Absolute Nucleated RBC 0.00 Nucleated RBC % 0.0 Sodium 142 Potassium 4.2 Chloride 105 Carbon Dioxide 28 Anion Gap 9.0 BUN 15 Creatinine 0.6 Estimated GFR (MDRD) 98 Glucose 116 H Calcium 9.5 Total Bilirubin 0.4 AST 16 ALT 12 Alkaline Phosphatase 61 Total Protein 7.1 Albumin 3.8 Globulin 3.3 Albumin/Globulin Ratio 1.2 Lipase 24 Urine Color YELLOW Urine Clarity CLEAR Urine pH 6.5 Ur Specific [place] 1.015 Urine Protein NEGATIVE Urine Glucose (UA) NEGATIVE Urine Ketones NEGATIVE Urine Occult Blood NEGATIVE Urine Nitrite NEGATIVE Urine Bilirubin NEGATIVE Urine Urobilinogen 0.2 (NORMAL) Ur Leukocyte Esterase NEGATIVE Ur Microscopic Review NOT INDICATED Urine Culture Comments NOT INDICATED - Rads (name of study) CT head Radiology: Prelim report reviewed, EMP read contemporaneously, See rad report (Stable subtle hyperattenuation focus in the right basal ganglia. This could reflect an ischemic event that has a hemorrhagic element. A neoplastic etiology such as INDEPENDENT LIVING ADVISOR lymphoma could demonstrate restricted diffusion signal and be hyperattenuating. No discrete mass is seen in this region on the comparison MRI. ) CTA head Radiology: Prelim report reviewed, EMP read contemporaneously, See rad report CTA neck Radiology: Prelim report reviewed, EMP read contemporaneously, See rad report PD MEDICAL DECISION MAKING - ED course Complexity details: reviewed results, re-evaluated patient, considered differential, d/w patient, d/w family, d/w bi consultant ED course: 73-year-old female with what appears to be a stroke. Symptoms are not significantly improving in the emergency department. I consulted neurology, Dr. Duel, recommends repeat CT angiogram of the head and neck. If no large vessel thrombus seen, would admit as an inpatient here for further work-up. No large vessel occlusion seen. Discussed the case with Dr. Brooks, hospitalist accepts This document was made in part using voice recognition software. While efforts are made to proofread this document, sound alike and grammatical errors may occur. Departure - Departure Disposition: 66 [facility] DC/Xfer Clinical Impression: Stroke Qualifiers: CVA mechanism: unspecified Qualified Code(s): I63.9 - Cerebral infarction, unspecified Condition: Stable Discharge Date/Time: 08/01/19 18:40
--- NOTE | 2019-08-01 14:30 | CT Report ---
Reason: L sided weakness Procedure Date: 08/01/2019 Accession Number: [id number] / [id number] Procedure: CT - Head W/O Stroke Protocol CPT Code: FULL RESULT: EXAM: CT HEAD EXAM DATE: 08/01/2019 02:04 PM. CLINICAL HISTORY: Left-sided weakness. COMPARISON: HEAD W/O 07/29/2019 8:29 PM. BRAIN W/O 07/30/2019 3:16 PM. BRAIN ANGIO W/O 07/30/2019 2:59 PM. TECHNIQUE: Multiaxial CT images were obtained from the foramen magnum to the vertex. Reformats: Sagittal and coronal. IV contrast: None. In accordance with CT protocol optimization, one or more of the following dose reduction techniques were utilized for this exam: automated exposure control, adjustment of mA and/or KV based on patient size, or use of iterative reconstructive technique. FINDINGS: Again seen is a 10 x 7 mm focus of increased attenuation in the right basal ganglia. There is some restricted diffusion signal in this region on the comparison MRI of the brain. The appearance is unchanged since a comparison head CT. The ventricles are normal in size and configuration. There is no extra-axial fluid collection present. Britton-white matter differentiation is preserved. No mass is present in either visualized orbit. The calvarium is intact. Mastoid air cells are well aerated. IMPRESSION: 1. Stable subtle hyperattenuation focus in the right basal ganglia. This could reflect an ischemic event that has a hemorrhagic element. A neoplastic etiology such as BIOMEDICAL ENGINEERING PROFESSOR lymphoma could demonstrate restricted diffusion signal and be hyperattenuating. No discrete mass is seen in this region on the comparison MRI. RADIA
[2019-08-01 15:20] LABS: BILIRUBIN,URINE NEGATIVE (NEGATIVE); GLUCOSE, URINE (UA) NEGATIVE (NEGATIVE); KETONES,URINE (UA) NEGATIVE (NEGATIVE); LEUKOCYTE ESTERASE, URINE NEGATIVE (NEGATIVE); NITRITE,URINE NEGATIVE (NEGATIVE); OCCULT BLOOD,URINE NEGATIVE (NEGATIVE); PH,URINE 6.5 PH (5.0-7.5); PROTEIN,URINE NEGATIVE (NEGATIVE); UROBILINOGEN,URINE 0.2 (NORMAL) E.U./dL (NORMAL)
[2019-08-01 15:21] LABS: CLARITY,URINE CLEAR (CLEAR)
[2019-08-01] MEDS ORDERED: IOVERSOL 320 100 ML VIAL IVP ONE ×2 (15:39→17:19)
--- NOTE | 2019-08-01 16:34 | CT Report ---
Reason: L sided weakness Procedure Date: 08/01/2019 Accession Number: [id number] / [id number] Procedure: CT - ANGIO HEAD W/WO CPT Code: FULL RESULT: EXAM: CT ANGIOGRAM HEAD. CT SCAN OF THE HEAD WITHOUT AND WITH CONTRAST. EXAM DATE: 08/01/2019 03:45 PM CLINICAL HISTORY: L sided weakness. Recent right-sided putamen infarct. COMPARISON: HEAD W/O STROKE PROTOCOL 08/01/2019 2:01 PM BRAIN W/O 07/30/2019 3:16 PM HEAD W/O 07/29/2019 8:29 PM BRAIN ANGIO W/O 07/30/2019 2:59 PM. TECHNIQUE: - CT Scan Head: Using a multidetector scanner, axial images were acquired from the foramen magnum to the skull vertex following contrast administration. - CT Angiogram: Using a multidetector scanner, high-resolution axial images were acquired from the skull base through vertex following rapid infusion of intravenous contrast. Reformats: Multiplanar MIP reformats were reconstructed. Nascet criteria used for stenosis measurement. IV Contrast: OPTI 320 80ML. In accordance with CT protocol optimization, one or more of the following dose reduction techniques were utilized for this exam: automated exposure control, adjustment of mA and/or KV based on patient size, or use of iterative reconstructive technique. FINDINGS: Post Contrast Head: There is no mass, mass effect, midline shift or abnormal extraaxial fluid collection. Size and configuration of the ventricles appear normal. There is no intracranial hemorrhage. Britton white matter differentiation is maintained. 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 Brain stem and cerebellum appear unremarkable. Calvarium and skull base appear intact and normal. Orbits and extracranial soft tissue appear unremarkable. No abnormal enhancement. Britton white matter differentiation appear preserved. Dural venous sinus and deep cerebral veins appear normal. CTA HEAD: Anterior Circulation: The internal carotid arteries (ICA), middle cerebral arteries (MCA), and anterior cerebral arteries (MELECIO) are patent bilaterally. The anterior communicating artery (A-COM) appears patent. No aneurysms, stenoses, or anatomic anomalies evident. Posterior Circulation: Focal mild stenosis at the distal P2 segment left ICA and moderate stenosis at the proximal superior segment left COUNTER WAITRESS/WAITER (sagittal image 71 series 10). 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 The superior vertebral artery, basilar, and posterior cerebral arteries (COUNTER WAITRESS/WAITER) are otherwise patent. No other aneurysms, stenoses, or anomalies evident. The posterior communicating arteries (P-COM) are hypoplastic bilaterally. IMPRESSION: CT Head: 1. No abnormal enhancement to suggest mass. 2. 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 CTA Head: 1. Mild stenosis of the distal P2 segment left COUNTER WAITRESS/WAITER and moderate stenosis of the proximal superior P3 segment left COUNTER WAITRESS/WAITER. When correlated with MR angiogram 07/30/2019, signal attenuation of the distal loop machine operator seen on MR angiogram likely artifactual. 2. No significant intracranial arterial stenosis otherwise. 3. 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 RADIA
[2019-08-01] MEDS ORDERED: SODIUM CHLORIDE FLUSH 0.9% 10 ML SYRINGE IVP PRN (17:16)
[2019-08-01] MEDS ORDERED: PROCHLORPERAZINE 10 MG/2 ML VIAL IVP PRN (17:16)
[2019-08-01] MEDS ORDERED: CLOPIDOGREL 75 MG TABLET PO STA (17:20)
--- NOTE | 2019-08-01 19:19 | HISTORY & PHYSICAL EXAMINATION ---
DATE OF SERVICE: 08/01/2019 Physician: Kae Brooks MD HISTORY OF PRESENT ILLNESS: This is a 73-year-old white female with a history of smoking lifelong, COPD on 1 inhaler who developed left arm and leg weakness and dysarthria approximately 10 days ago, which lasted 30 minutes, and she did not seek medical attention. It then recurred about 1 week later, although it was not as severe and without dysarthria, and she presented to our emergency room then, because of its recurrence and was here in Observation status for workup of a TIA. An Echo done then showed normal LVEF and no clot or intracardiac shunt. She had brain MRI and MRA that showed a subacute stroke as well as microangiopathy and significant intracerebral vascular stenoses of up to 70%. She had a fasting lipid panel that showed an LDL of 137. She was started on daily aspirin and Lipitor, nicotine patch and sent home. She also had somewhat elevated blood pressure in the 150s over 80s consistently and was sent home with Amlodipine, new dose. She was compliant with all her medications. Two nights ago, she had a headache, which responded to Excedrin. This morning, after awakening and breakfast, at 11 a.m. she developed sudden onset of dysarthria, facial droop, left arm and leg weakness and it did not respond back to normal in 30 minutes and she asked her to bring her to the emergency room, which he did. She was still having her symptoms and started undergoing evaluation in the emergency room. The ER doctor reached out to [facility] at [facility], who advised that she have repeat brain vascular imaging and it was done with CT with contrast dye. This found the same stenoses in an MCA distribution, but no clot was found. Her symptoms have now lasted 6 hours. She is being admitted now as an inpatient for stroke management including PT and OT. PAST MEDICAL HISTORY 1. Smoker. 2. COPD. 3. Recent TIA. 4. Recently diagnosed HTN. ALLERGIES: NONE. MEDICATIONS 1. Amlodipine 5 mg daily. 2. Aspirin 81 mg daily. 3. Lipitor 40 mg every night. 4. ProAir inhaler p.r.n. FAMILY HISTORY: No inherited diseases. SOCIAL HISTORY: She lives with her who is also a smoker and he is a heavier smoker than she is. She quit smoking only briefly using Chantix and Wellbutrin, but has restarted. Rare alcohol use. REVIEW OF SYSTEMS: Patient started to get improvement in her left arm and leg weakness while she was in the ER after many hours, and she was helped up to a bedside commode and she reports listing to the left and falling over several times and spilling the urine from the portable commode. A comprehensive review of systems was performed and the pertinent positives are listed, the rest are negative. PHYSICAL EXAMINATION GENERAL: Elderly white female. She is in no distress. VITAL SIGNS: Blood pressure 137/91, heart rate 80 in sinus rhythm, afebrile, room air saturation 94%. HEENT: Unremarkable. Good dentition. Moist oral mucosa. NECK: Without JVD or carotid bruits. CHEST: Clear. HEART: Normal heart sounds. ABDOMEN: Soft. No organomegaly or tenderness. EXTREMITIES: No clubbing, cyanosis or edema. NEUROLOGIC: There is a tiny left lower facial droop. There is 4/5 strength of the left arm and leg, but she can now move it independently. The right side is normal. Her gait was not assessed. Her speech is now normal, not dysarthric. LABORATORY DATA: Normal electrolytes. Normal BUN and creatinine. Normal liver tests. Normal lipase. Normal CBC. Normal urinalysis. IMAGING: No chest x-ray was done. Head CT showed evidence of the old stroke. A head CTA showed no mass effect, no midline shift or hemorrhage. She has stenosis of the distal P2 segment of the left PLATE MILL HAND and moderate stenosis of the proximal superior P3 segment of the left PLATE MILL HAND. This correlates with the MR angiogram from 07/30/2019. 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 IMPRESSION/DIAGNOSES 1. Acute cerebrovascular accident. 2. History of recent transient ischemic attacks. 3. Elevated cholesterol. 4. Tobacco abuse. 5. Cerebrovascular disease. PLAN: Admit the patient to a medical/surgical bed on telemetry, watching for atrial fibrillation. If atrial fibrillation is found, she is a candidate to get anticoagulation. Continue with her anticholesterol medicine and daily baby aspirin. Add Plavix to her regimen. Hold the Amlodipine at this time to allow permissive hypertension. Begin physical therapy and occupational therapy. Continue with her nicotine patch and smoking cessation was again discussed. Swallowing evaluation is planned because of her dysarthric speech. DEEP VENOUS THROMBOSIS PROPHYLAXIS: RANCHO stockings. CODE STATUS: FULL CODE. ATTESTATION: Patient is expected to be discharged or transferred to another facility within 96 hours: Yes. cc: FÉLIX Haro TD: 08/01/2019 19:03 MTDD
[2019-08-01] MEDS: ATORVASTATIN 40 MG TABLET PO SCH (21:33)
[2019-08-01] MEDS: FAMOTIDINE 20 MG/2 ML VIAL IVP SCH (21:34)
[2019-08-01] MEDS: SODIUM CHLORIDE FLUSH 0.9% 10 ML SYRINGE IVP SCH (21:34)
[2019-08-01] MEDS ORDERED: ALBUTEROL NEB 2.5 MG/3 ML INH PRN (23:54)
[2019-08-02] MEDS: ASPIRIN CHEW 81 MG TABLET PO SCH (08:45)
[2019-08-02] MEDS: CLOPIDOGREL 75 MG TABLET PO SCH (08:46)
[2019-08-02] MEDS: FAMOTIDINE 20 MG/2 ML VIAL IVP SCH (08:46)
[2019-08-02] MEDS: NICOTINE 7 MG PATCH TOP SCH (08:46)
[2019-08-02] MEDS: SODIUM CHLORIDE FLUSH 0.9% 10 ML SYRINGE IVP SCH ×2 (08:47→18:22)
--- NOTE | 2019-08-02 17:55 | PROVIDER PROGRESS NOTE ---
Subjective - Prog Note Date Prog Note Date: 08/02/19 Prog Note Time: 17:51 - Subjective Pt reports feeling: Improved Subjective: While she reports being improved, she is still tired, and starting to get anxious about what is happened to her. Her left body (left arm, waist area, left leg) will feel intermittently heavy. That improved last night, but it is back again this morning. She also is very off balance. But she is alert, able to swallow, able to stand with help to walk to the bathroom. Current Medications - Current Medications Current Medications: Active Medications Albuterol () 2.5 mg INH RTQ4H PRN PRN Reason: Wheezing Aspirin (St Pedrito Aspirin) 81 mg PO DAILY [facility] Last Admin: 08/02/19 08:45 Dose: 81 mg Atorvastatin Calcium (Lipitor) 40 mg PO QPM [facility] Last Admin: 08/01/19 21:33 Dose: 40 mg Clopidogrel Bisulfate (Plavix) 75 mg PO DAILY [facility] Last Admin: 08/02/19 08:46 Dose: 75 mg Famotidine (Pepcid) 20 mg IVP DAILY [facility] Last Admin: 08/02/19 08:46 Dose: 20 mg Nicotine (Nicoderm) 1 patch TOP DAILY [facility] Last Admin: 08/02/19 08:46 Dose: 1 patch Prochlorperazine Edisylate (Compazine Inj) 10 mg IVP Q6HR PRN PRN Reason: Nausea / Vomiting Sodium Chloride (Normal Saline Flush 0.9%) 10 ml IVP PRN PRN PRN Reason: NEEDED PER PROVIDER ORDERS Sodium Chloride (Normal Saline Flush 0.9%) 10 ml IVP 0100,0900,1700 [facility] Last Admin: 08/02/19 08:47 Dose: 10 ml Albuterol Sulfate [Proair Hfa Inhaler] 2 puffs INH Q4H PRN 07/30/19 Budesonide/Formoterol Fumarate [Symbicort 80-4.5 Mcg Inhaler] 2 puffs INH BID 08/02/19 Objective - Vital Signs/Intake & Output Reviewed Vital Signs: Yes Vital Signs: Vital Signs x48h Temp Pulse Pulse Pulse Pulse Pulse Resp 08/02/19 15:55 36.6 C 76 18 08/02/19 13:40 36.8 C 82 16 08/02/19 11:32 36.8 C 61 14 08/02/19 10:47 08/02/19 10:20 08/02/19 10:15 82 85 78 BP BP BP BP Pulse Ox 08/02/19 15:55 131/73 H 95 08/02/19 13:40 96 08/02/19 11:32 140/65 H 95 08/02/19 10:47 117/54 L 08/02/19 10:20 121/74 08/02/19 10:15 117/54 L 121/74 121/65 Intake & Output: Intake & Output 07/30/19 07/31/19 08/01/19 08/02/19 23:59 23:59 23:59 23:59 Intake Total 500 560 Output Total 150 490 Balance 350 70 - Objective General Appearance: positive: No acute distress, Alert Eyes Bilateral: positive: Other (right pupil slightly smaller than left but responsive to light) ENT: positive: Pharynx nml Neck: positive: No JVD. negative: Stiff neck, Carotid bruit Respiratory: positive: Chest non-tender. negative: Wheezes, Rales, Rhonchi Cardiovascular: positive: Regular rate & rhythm. negative: Gallop/S4, Friction rub Abdomen: positive: Non-tender, No organomegaly, Nml bowel sounds, No distention Skin: positive: Warm, Dry Extremities: positive: No pedal edema Neurologic/Psychiatric: positive: Oriented x3, CN's nml (2-12). negative: Motor nml (left arm 4+/5, with right arm 5/5 left leg 3+/5 with right leg 5/5) - Lab Results Fish Bones: 08/01/19 13:10 08/01/19 13:10 ABX Reporting Has patient been on IV antibiotics over the past 48 hours?: No Assessment/Plan - Problem List (1) Basal ganglia stroke Impression: right side. Plan: continue ASA, Plavix, statin, BP control with PT/OT check lipid panel (2) Tobacco abuse Impression: agress to stop smoking. (3) Hypertension Impression: 117-140 today. No change in meds. Qualifiers: Hypertension type: essential hypertension Qualified Code(s): I10 - Essential (primary) hypertension
--- NOTE | 2019-08-02 19:19 | CT Report ---
Reason: L sided weakness Procedure Date: 08/01/2019 Accession Number: [id number] / [id number] Procedure: CT - ANGIO NECK W CPT Code: FULL RESULT: EXAM: CT ANGIOGRAM NECK EXAM DATE: 08/01/2019 03:45 PM. CLINICAL HISTORY: Left-sided weakness. COMPARISON: Concurrent CT angiogram head; HEAD W/O STROKE PROTOCOL 08/01/2019 2:01 PM. TECHNIQUE: Routine axial helical imaging was performed from the skull base through the aortic arch. Reconstructions: Routine multiplanar 3D MIP reconstructions. IV Contrast: OPTI 320 80ML. Evaluation of arterial stenosis is based on a NASCET method of measurement. In accordance with CT protocol optimization, one or more of the following dose reduction techniques were utilized for this exam: automated exposure control, adjustment of mA and/or KV based on patient size, or use of iterative reconstructive technique. Findings: Relevant images are indicated (image number, series number). Aortic arch: Patent, normal configuration of the great vessels, no atherosclerotic disease. Left carotid artery: Patent with only mild atherosclerotic disease. Right carotid artery: Patent with only mild atherosclerotic disease. Left vertebral artery: Patent. Right vertebral artery: Patent. Limited evaluation lung apices demonstrates scattered centrilobular emphysema, right apical scar with calcification present. Soft tissue neck negative, airway patent, thyroid not enlarged. Advanced multilevel cervical spondylosis present. Impressions: 1. Widely patent aortic arch, bilateral carotid and vertebral arteries. 2. Prominent right apical scarring with centrilobular emphysema. 3. Advanced multilevel cervical spondylosis. 4. Soft tissue neck negative. RADIA
[2019-08-02] MEDS: ATORVASTATIN 40 MG TABLET PO SCH (21:25)
[2019-08-03] MEDS: SODIUM CHLORIDE FLUSH 0.9% 10 ML SYRINGE IVP SCH ×3 (00:14→18:01)
--- NOTE | 2019-08-03 07:45 | PROVIDER PROGRESS NOTE ---
Subjective - Prog Note Date Prog Note Date: 08/03/19 Prog Note Time: 15:16 - Subjective Pt reports feeling: No change Current Medications - Current Medications Current Medications: Active Medications Albuterol () 2.5 mg INH RTQ4H PRN PRN Reason: Wheezing Last Admin: 08/03/19 07:31 Dose: 2.5 mg Aspirin (St Pedrito Aspirin) 81 mg PO DAILY [facility] Last Admin: 08/02/19 08:45 Dose: 81 mg Atorvastatin Calcium (Lipitor) 40 mg PO QPM [facility] Last Admin: 08/02/19 21:25 Dose: 40 mg Clopidogrel Bisulfate (Plavix) 75 mg PO DAILY [facility] Last Admin: 08/02/19 08:46 Dose: 75 mg Famotidine (Pepcid) 20 mg IVP DAILY [facility] Last Admin: 08/02/19 08:46 Dose: 20 mg Nicotine (Nicoderm) 1 patch TOP DAILY [facility] Last Admin: 08/02/19 08:46 Dose: 1 patch Prochlorperazine Edisylate (Compazine Inj) 10 mg IVP Q6HR PRN PRN Reason: Nausea / Vomiting Sodium Chloride (Normal Saline Flush 0.9%) 10 ml IVP PRN PRN PRN Reason: NEEDED PER PROVIDER ORDERS Sodium Chloride (Normal Saline Flush 0.9%) 10 ml IVP 0100,0900,1700 [facility] Last Admin: 08/03/19 00:14 Dose: 10 ml Albuterol Sulfate [Proair Hfa Inhaler] 2 puffs INH Q4H PRN 07/30/19 Budesonide/Formoterol Fumarate [Symbicort 80-4.5 Mcg Inhaler] 2 puffs INH BID 08/02/19 Objective - Vital Signs/Intake & Output Reviewed Vital Signs: Yes Vital Signs: Vital Signs x48h Temp Pulse Pulse Resp BP Pulse Ox 08/03/19 07:38 36.5 C 104 H 100 17 134/75 H 94 08/03/19 04:46 36.7 C 54 L 16 131/67 H 94 08/03/19 00:21 36.4 C L 78 18 147/69 H 94 Intake & Output: Intake & Output 07/31/19 08/01/19 08/02/19 08/03/19 23:59 23:59 23:59 23:59 Intake Total 500 960 100 Output Total 150 490 Balance 350 470 100 - Objective General Appearance: positive: No acute distress, Alert Eyes Bilateral: positive: Other (same slightly irregular size right pupil from left but accomodates.) ENT: positive: Pharynx nml Neck: positive: No JVD Respiratory: positive: Chest non-tender. negative: Wheezes, Rales, Rhonchi Cardiovascular: positive: Regular rate & rhythm, Systolic murmur. negative: Gallop/S4, Friction rub Abdomen: positive: Non-tender, No organomegaly, Nml bowel sounds, No distention Skin: positive: Warm, Dry Neurologic/Psychiatric: positive: Oriented x3, CN's nml (2-12), Facial droop (slight today and not present yesterday), Other (seen by OT: Pt is seated in chair, agreeable to therapy but does report feeling fatigued and fatiguing much faster now than compared to baseline. Pt demonstrates decreased strength and pr oprioception in LUE compared to RUE, as well as impaired sitting balance during dynamic sitting or when sitting balance is challenged. Pt is pleasant and motivated to participate w/ therapies in order to return home at [facility]. Pt has good family support. Pt is a good candidate for inpatient rehab services, if this is not an option then pt would benefit from swing bed or SNF for continued therapy services in order to facilitate safe and successful return to [facility]. PT: Pt. is a pleasant, well motivated 73 y.o. F, s/p Acute CVA w/Left side weakness and decreased proprioception; she presents at high risk for falling at this time demonstrating delays in AROM timeliness/precision of path for L U/LE; she is ambulatory w/FWW, requring cga and multiple skilled cues for L LE placement and for balance; pt. needs continued sessions of PT while in the hospital, progressing her functional activity and balance.). negative: Motor nml (left arm and left leg still w same weakness from yesterday, no change. can spontaneously gesture and use arms, legs), Slurred/abnml speech - Lab Results Fish Bones: 08/01/19 13:10 08/01/19 13:10 ABX Reporting Has patient been on IV antibiotics over the past 48 hours?: No Assessment/Plan - Problem List (1) Basal ganglia stroke Impression: right side of brain with left body involvement, ataxia, occ facial droop. she is angry she did not receive tpa. I explained that she described waxing and waning symptoms for days and that once they symptoms were permanent as of 11 am that day, she was not a candidate for tpa. I also carefully explained that the decision was not made unliaterally by ER but by consultation with [facility] Tele neurology. She is not happy and feels that she should still have received it. Plan: continue ASA, Plavix, statin, BP control with PT/OT check lipid panel when fasting. review with PT today's progress and see which neurorehab unit is nearby. (2) Tobacco abuse Impression: agrees to stop smoking. (3) Hypertension Impression: 131-147 today. No change in meds. Qualifiers: Hypertension type: essential hypertension Qualified Code(s): I10 - Essential (primary) hypertension
[2019-08-03] MEDS: CLOPIDOGREL 75 MG TABLET PO SCH (09:45)
[2019-08-03] MEDS: NICOTINE 7 MG PATCH TOP SCH (09:45)
[2019-08-03] MEDS: FAMOTIDINE 20 MG/2 ML VIAL IVP SCH (09:45)
[2019-08-03] MEDS: ASPIRIN CHEW 81 MG TABLET PO SCH (09:45)
[2019-08-03] MEDS: BUDESONIDE 0.5 MG/2 ML NEB INH SCH (19:45)
[2019-08-03] MEDS: FORMOTEROL FUMARATE NEB 20 MCG/2 ML INH SCH (19:45)
[2019-08-03] MEDS: DOCUSATE SODIUM 250 MG CAPSULE PO SCH (20:40)
[2019-08-03] MEDS: POLYETHYLENE GLYCOL 3350 17 GM PACKET PO SCH (20:40)
[2019-08-03] MEDS: ATORVASTATIN 40 MG TABLET PO SCH (20:40)
[2019-08-03] MEDS: SENNA 8.6 MG TABLET PO SCH (20:40)
[2019-08-04] MEDS: SODIUM CHLORIDE FLUSH 0.9% 10 ML SYRINGE IVP SCH ×2 (01:07→08:47)
[2019-08-04 05:25] LABS: CHOL/HDL RATIO 3.3 (<4.4); CHOLESTEROL 158 mg/dL; HDL CHOLESTEROL 48 mg/dL; LDL CHOLESTEROL,CALCULATED 79 mg/dL; LDL/HDL RATIO 1.6 (<4.4); VLDL CHOLESTEROL 31 mg/dL
[2019-08-04] MEDS: BUDESONIDE 0.5 MG/2 ML NEB INH SCH (07:33)
[2019-08-04] MEDS: FORMOTEROL FUMARATE NEB 20 MCG/2 ML INH SCH (07:33)
[2019-08-04] MEDS: NICOTINE 7 MG PATCH TOP SCH (08:45)
[2019-08-04] MEDS: ASPIRIN CHEW 81 MG TABLET PO SCH (08:47)
[2019-08-04] MEDS: FAMOTIDINE 20 MG/2 ML VIAL IVP SCH (08:47)
[2019-08-04] MEDS: CLOPIDOGREL 75 MG TABLET PO SCH (08:47)
[2019-08-04] MEDS: SENNA 8.6 MG TABLET PO SCH (08:47)
[2019-08-04] MEDS: POLYETHYLENE GLYCOL 3350 17 GM PACKET PO SCH (08:51)
[2019-08-04] MEDS: DOCUSATE SODIUM 250 MG CAPSULE PO SCH (08:52)
[2019-08-04 09:25] VITALS: BP 134/66
--- NOTE | 2019-08-04 10:21 | Discharge Plan ---
Discharge Plan Problem Reviewed?: Yes Disposition: 02 Transfer Acute Care Hosp Condition: Stable Diet: Cardiac Activity Restrictions: Activity as Tolerated Assistance Devices: Walker Instruction Topics: Stroke Resources Support, Stroke Dc Health Concerns: You came to our emergency room because you were having waxing and waning symptoms of left body heaviness in your left arm and left leg. You were also off balance. This was the third episode of these problems in over a week. With the first episode it lasted so quickly that you stayed home. With the second episode you were admitted to the hospital, diagnosed with a transient ischemic attack, and sent home on aspirin, Plavix, and a cholesterol pill. This is now your third episode. It has been going on since your 07/30/19 discharge, off and on. On the day of this admission your symptoms had been permanently present since about 11 in the morning. During your stay, you were presented to the neurologist at [facility]. Since you had already had a work-up with your previous admission, they requested that we repeat your CT of head and angiogram of your head. You had the same right basal ganglia stroke (a specific anatomical area in your right brain) that was present before. And your angiogram showed no artery blockages that needed to be treated. Plan of Treatment: Treatment consisted of staying on aspirin, Plavix, and a cholesterol-lowering drug. We did repeat your cholesterol. With your last admission you were 193 cholesterol, this time 158. Your bad cholesterol which was LDL was 126. It is now 79. Your HDL was 52 and is now 48. While here, you also went evaluation and treatment with physical therapy and Occupational Therapy. Care Goals: 1. Physical therapy has recommended rehabilitation in a rehabilitation unit that specializes in neuro rehab. You have been accepted by [facility]. You will be transferred today. 2. Please continue the blood thinners that will help reduce your risk of stroke, and your cholesterol pill which will also reduce your risk of stroke. See a neurologist in follow-up. These medications may not be permanent, and they may recommend they be stopped anywhere from 30 to 90 days in the future. 3. When you get out of rehab, please see your primary care provider, Bridgette Vines in follow-up. No Smoking: If you smoke, Please STOP! Call for help. Follow-up with: Bridgette Vines ARNP [Primary Care Provider] -
--- NOTE | 2019-08-04 11:17 | DISCHARGE SUMMARY ---
Discharge Summary Admit Date: 08/01/19 Discharge Date: 08/04/19 Discharging Provider: Nidhi Rodriguez MD Primary Care Provider: Bridgette Vines MD Code Status: Attempt Resuscitation Condition at Discharge: Stable Discharge Disposition: 02 Transfer Acute Care Hosp Discharge Facility Name: [facility] - DIAGNOSES Discharge Diagnoses with Status of Each Condition: 1. Subacute 1 cm infarcts involving right alberto radiata and right basal ganglia 2. Chronic lacunar infarcts in the basal ganglia bilaterally with chronic hemosiderin staining within the right basal ganglia 3. Cerebrovascular stenosis. 4. Hypertension 5. Tobacco abuse 6. COPD not affecting acute episode of care - HPI History of Present Illness: She is a 73-year-old female who has COPD and is a current tobacco abuser that has already been admitted once for a right basal ganglia infarct. Approximately 10 days ago she had an episode of left arm and left leg weakness with dysarthria. It resolved after about 30 minutes and she did not seek medical attention. It then recurred 1 week later, but not as severe and without dysarthria. She came to our emergency room then on 07/29, and she was placed in observation status for work-up of a TIA. Echocardiogram at that admission showed normal left ventricular ejection fraction, no atrial clots, no intracardiac shunt. She had a brain MRI that confirmed a subacute stroke in 2 areas, as well as significant intracerebral vascular stenosis of up to 70% in the BUILDING MECHANIC region. The subacute regions were felt to be related to the deficit she described from 10 days ago. She also had evidence of previous strokes that were age indeterminate. She was started on aspirin and Lipitor, advised to stop smoking, placed on a nicotine patch, and sent home. Because blood pressures were in the 150 systolic, she was sent home with amlodipine. She was compliant with her medications and had stopped smoking. 2 days before this admission she developed a headache that responded to Excedrin. She is also been developing intermittent "heaviness" of the left arm and left leg that would come and go. No dysarthria or dysphasia. On the morning of admission these deficits came at around 11 in the morning and did not go away and were accompanied by a headache so she came to our hospital. She was presented to [facility] tele-neurology. She is not a candidate for TPA. And although she has a known diagnosis, they felt it prudent to admit her for repeat CT of the head and angiography to make sure a new pathology has not occurred. - CONSULTS | PROCEDURES Consultations: [facility] Procedures: 1. Head CT. 10 x 7 mm focus of increased attenuation in the right basal ganglia. Appearance unchanged from previous CT July 29, 2019. 2. Head CT angiogram. Mild stenosis of the distal P2 segment of the left BUILDING MECHANIC and moderate stenosis of the proximal superior P3 segment left BUILDING MECHANIC. When correlated with MR angiogram July 30, 2019, signal attenuation of the distal BUILDING MECHANIC seen on MR angiogram likely artifactual. 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 3. CT angiogram neck. Widely patent aortic arch, bilateral carotid and vertebral arteries. Prominent right apical scarring with central lobular emphysema. Advanced multilevel cervical spondylosis. - HOSPITAL COURSE Hospital Course: The patient did not have dysphagia or dysarthria during her stay. There were occasional bouts of emotional lability and anger. She was very cooperative with physical therapy. She was easily frightened by the waxing and waning phenomena of heaviness in her left arm and left leg. Every time it happened she felt like she was having another stroke. Physical therapy saw her and did gait training, strengthening. She was making improvements and demonstrating better balance and coordination of the left lower extremity during walking. She demonstrated improved accuracy with left foot placement. 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 However she was felt to still need continued PT with intensive neuro rehab. She showed good potential for improvement with early response to therapies. As such, it was recommended that she be transferred to an inpatient rehab facility. Blood pressure remained controlled during her stay. She was 1 11-1 32 systolic. Repeat cholesterol was done. With her previous admission cholesterol was 193, LDL 126, HDL 52. After being on Lipitor, her cholesterol is 158, LDL 79, HDL 48. She is continued on aspirin and Plavix was added.She was continued on her inhalers. Since we do not have Symbicort on her formulary she was changed to budesonide and Pulmicort. She did not have any acute COPD exacerbation. She w as not hypoxic. At discharge temperature is 36.6 pulse is 86 blood pressure 134/66, respirations 19 and 96% on room air. She is 5 foot 1 inches tall and weighs 59.5 kg. A slender, elderly, female who describes herself as "the ever ready bunny". She does have a slight left facial droop. Right pupil slightly smaller than left pupil. But no dysphasia or dysarthria. Neck is supple no carotid bruits. Lungs have slightly prolonged and exhalation phase but there are no crackles,, rhonchi, wheezing. No increased respiratory effort. PMI is normally placed with a regular rate and rhythm. No murmurs. The abdomen is soft, nontender, with normal bowel sounds. Extremities are warm, no clubbing cyanosis or edema. Strength is slightly diminished in the left arm and left leg in comparison to the right arm. Slightly hyperreflexive on the left knee. Slight left facial droop. Slight anisocoria. But she is able to scoot herself to the side of the bed, stand with a walker and drags her left foot very slightly. She is asked to follow through with her primary care provider after discharge. Asked again not to smoke. Her primary care provider is Shea Vines. After discharge also establish care with a neurologist. I explained to him that her regimen of Plavix aspirin and Lipitor may change down the road. She may be on single agent therapy or double agent therapy depending on the neurologist and Dr. Vines. Greater than 30 minutes was spent coordinating discharge. - ALLERGIES Allergies/Adverse Reactions: Allergies Allergy/AdvReac Type Severity Reaction Status Date / Time No Known Drug Allergies Allergy Verified 07/29/19 19:47 - MEDICATIONS Home Medications: Ambulatory Orders Medication Instructions Recorded Confirmed Albuterol Sulfate [Proair Hfa 2 puffs INH Q4H PRN 07/30/19 08/02/19 Inhaler] Aspirin Chewable [St Pedrito 81 mg PO DAILY #30 tablet 07/30/19 08/02/19 Aspirin] Atorvastatin Calcium [Lipitor] 40 mg PO QPM #30 tablet 07/30/19 08/02/19 Nicotine 7 mg Patch [Nicoderm] 1 patch TOP DAILY #7 patch 07/30/19 08/02/19 amLODIPine [Norvasc] 5 mg PO DAILY #30 tablet 07/30/19 08/02/19 Budesonide/Formoterol Fumarate 2 puffs INH BID 08/02/19 08/02/19 [Symbicort 80-4.5 Mcg Inhaler] Clopidogrel [Plavix] 75 mg PO DAILY tablet 08/04/19 - LABS Result Diagrams: 08/01/19 13:10 08/01/19 13:10
== END 2019-08-04 11:35 | disposition short-term general hospital (02) | DRG 65 ==
LOC: ED 12:20 → MS3 17:16
PROVIDERS: ADMIT Internal Medicine; ATTEND Specialist
DX: I63.9 Cerebral infarction, unspecified (principal); J44.9 Chronic obstructive pulmonary disease, unspecified; G81.94 Hemiplegia, unspecified affecting left nondominant side; R29.705 NIHSS score 5; R29.810 Facial weakness; H57.02 Anisocoria; J43.9 Emphysema, unspecified; I67.2 Cerebral atherosclerosis; I66.22 Occlusion and stenosis of left posterior cerebral artery; I67.1 Cerebral aneurysm, nonruptured; I10 Essential (primary) hypertension; F17.200 Nicotine dependence, unspecified, uncomplicated; E78.00 Pure hypercholesterolemia, unspecified; Z79.51 Long term (current) use of inhaled steroids; Z79.82 Long term (current) use of aspirin; Z86.73 Personal history of transient ischemic attack (TIA), and cerebral infarction without residual deficits
CPT/HCPCS: 36415; 70450; 70496; 70498; 80053; 80061; 81003; 83690; 85025; 92610; 93005; 94640; 97116; 97162; 97166; 97530; 99284; 99285; A9270; J7626; Q9967; 81001; 83721; 87086

== ENCOUNTER 2019-08-22 13:55 | Outpatient (CLI) | payer MEDICARE, OTHER | END 2019-08-22 23:59 | disposition home or self-care (01) | LOC: LAB.R 13:55 | PROVIDERS: ATTEND Physician Assistant Medical | DX: N30.00 Acute cystitis without hematuria (principal); R30.0 Dysuria | CPT/HCPCS: 81002; 87086; 87181 ==

== ENCOUNTER 2020-07-25 08:43 | Outpatient (CLI) | payer MEDICARE, OTHER ==
[2020-07-25 15:26] LABS: BASOPHILS % (AUTO) 0.5 %; EOSINOPHILS # (AUTO) 0.3 10^3/uL (0.0-0.7); EOSINOPHILS % (AUTO) 4.1 %; HGB - HEMOGLOBIN 14.9 g/dL (12.0-16.0); LYMPHOCYTES # (AUTO) 1.6 10^3/uL (1.5-3.5); MEAN CORPUSCULAR HEMOGLOBIN 30.7 pg (27.0-31.0); MEAN CORPUSCULAR HGB CONC 31.6 g/dL (32.0-36.0); MEAN CORPUSCULAR VOLUME 97.1 fL (81.0-99.0); MEAN PLATELET VOLUME 11.8 fL (7.9-10.8); MONOCYTES # (AUTO) 0.7 10^3/uL (0.0-1.0); MONOCYTES % (AUTO) 9.2 %; NEUTROPHILS # (AUTO) 4.7 10^3/uL (1.5-6.6); NEUTROPHILS % (AUTO) 63.9 %; PLT - PLATELET COUNT 261 10^3/uL (130-450); RED BLOOD COUNT 4.86 10^6/uL (4.20-5.40); RED CELL DISTRIBUTION WIDTH 13.1 % (12.0-15.0); WHITE BLOOD COUNT 7.4 x10^3/uL (4.8-10.8)
[2020-07-25 15:39] LABS: ALBUMIN 4.1 g/dL (3.2-5.5); ALBUMIN/GLOBULIN RATIO 1.4 (1.0-2.2); ALKALINE PHOSPHATASE 79 IU/L (42-121); ALT ALANINE AMINOTRANSFERASE 23 IU/L (10-60); AST ASPARTATE AMINOTRANSFERASE 24 IU/L (10-42); BILIRUBIN,TOTAL 0.7 mg/dL (0.2-1.0); BUN - BLOOD UREA NITROGEN 11 mg/dL (6-20); CALCIUM 9.4 mg/dL (8.5-10.3); CARBON DIOXIDE - CO2 29 mmol/L (21-32); CHLORIDE 103 mmol/L (101-111); CHOL/HDL RATIO 2.5 (<4.4); CHOLESTEROL 145 mg/dL; CREATININE 0.6 mg/dL (0.4-1.0); GLUCOSE 106 mg/dL (70-100); HDL CHOLESTEROL 57 mg/dL; LDL CHOLESTEROL,CALCULATED 72 mg/dL; LDL/HDL RATIO 1.3 (<4.4); SODIUM 140 mmol/L (135-145); VLDL CHOLESTEROL 16 mg/dL
== END 2020-07-25 08:44 | disposition home or self-care (01) ==
LOC: LAB.S 08:43
PROVIDERS: ATTEND Registered Nurse
DX: G45.9 Transient cerebral ischemic attack, unspecified (principal); F17.210 Nicotine dependence, cigarettes, uncomplicated; J44.9 Chronic obstructive pulmonary disease, unspecified
CPT/HCPCS: 36415; 80053; 80061; 83721; 84443; 85025

== ENCOUNTER 2022-06-05 07:56 | Outpatient (CLI) | payer MEDICARE, OTHER ==
[2022-06-05 14:43] LABS: BASOPHILS # (AUTO) 0.1 10^3/uL (0.0-0.1); BASOPHILS % (AUTO) 0.9 %; EOSINOPHILS # (AUTO) 0.2 10^3/uL (0.0-0.7); EOSINOPHILS % (AUTO) 2.9 %; HCT - HEMATOCRIT 42.8 % (37.0-47.0); HGB - HEMOGLOBIN 13.9 g/dL (12.0-16.0); LYMPHOCYTES # (AUTO) 1.9 10^3/uL (1.5-3.5); LYMPHOCYTES % (AUTO) 29.7 %; MEAN CORPUSCULAR HEMOGLOBIN 31.5 pg (27.0-31.0); MEAN CORPUSCULAR HGB CONC 32.5 g/dL (32.0-36.0); MEAN CORPUSCULAR VOLUME 97.1 fL (81.0-99.0); MEAN PLATELET VOLUME 11.5 fL (7.9-10.8); MONOCYTES # (AUTO) 0.8 10^3/uL (0.0-1.0); MONOCYTES % (AUTO) 11.8 %; NEUTROPHILS # (AUTO) 3.5 10^3/uL (1.5-6.6); NEUTROPHILS % (AUTO) 54.4 %; PLT - PLATELET COUNT 245 10^3/uL (130-450); RED BLOOD COUNT 4.41 10^6/uL (4.20-5.40); RED CELL DISTRIBUTION WIDTH 13.2 % (12.0-15.0); WHITE BLOOD COUNT 6.5 x10^3/uL (4.8-10.8)
[2022-06-05 15:39] LABS: THYROID STIMULATING HORMONE 1.28 uIU/mL (0.34-5.60)
[2022-06-05 16:06] LABS: ALBUMIN 3.9 g/dL (3.2-5.5); ALBUMIN/GLOBULIN RATIO 1.5 (1.0-2.2); ALKALINE PHOSPHATASE 72 IU/L (42-121); ALT ALANINE AMINOTRANSFERASE 20 IU/L (10-60); AST ASPARTATE AMINOTRANSFERASE 24 IU/L (10-42); BILIRUBIN,TOTAL 0.8 mg/dL (0.2-1.0); BUN - BLOOD UREA NITROGEN 17 mg/dL (6-20); CALCIUM 9.5 mg/dL (8.5-10.3); CARBON DIOXIDE - CO2 31 mmol/L (21-32); CHLORIDE 102 mmol/L (101-111); CHOL/HDL RATIO 2.3 (<4.4); CHOLESTEROL 163 mg/dL; CREATININE 0.6 mg/dL (0.4-1.0); GFR - MDRD 97 (>89); GLUCOSE 98 mg/dL (70-100); HDL CHOLESTEROL 71 mg/dL; LDL CHOLESTEROL,CALCULATED 81 mg/dL; LDL/HDL RATIO 1.1 (<4.4); POTASSIUM 3.9 mmol/L (3.5-5.0); SODIUM 141 mmol/L (135-145); TOTAL PROTEIN 6.5 g/dL (6.7-8.2); TRIGLYCERIDES 54 mg/dL; VLDL CHOLESTEROL 11 mg/dL
== END 2022-06-05 07:57 | disposition home or self-care (01) ==
LOC: LAB.S 07:56
PROVIDERS: ATTEND Registered Nurse
DX: J44.9 Chronic obstructive pulmonary disease, unspecified (principal); R53.83 Other fatigue; G45.9 Transient cerebral ischemic attack, unspecified
CPT/HCPCS: 36415; 80053; 80061; 83721; 84443; 85025

== ENCOUNTER 2023-06-09 08:40 | Outpatient (CLI) | payer MEDICARE, OTHER ==
[2023-06-09 14:58] LABS: BASOPHILS # (AUTO) 0.1 10^3/uL (0.0-0.1); BASOPHILS % (AUTO) 1.1 %; EOSINOPHILS # (AUTO) 0.2 10^3/uL (0.0-0.7); EOSINOPHILS % (AUTO) 2.7 %; HCT - HEMATOCRIT 41.3 % (37.0-47.0); HGB - HEMOGLOBIN 12.8 g/dL (12.0-16.0); LYMPHOCYTES # (AUTO) 2.2 10^3/uL (1.5-3.5); LYMPHOCYTES % (AUTO) 33.6 %; MEAN CORPUSCULAR VOLUME 93.4 fL (81.0-99.0); MEAN PLATELET VOLUME 11.5 fL (7.9-10.8); MONOCYTES # (AUTO) 0.9 10^3/uL (0.0-1.0); MONOCYTES % (AUTO) 13.4 %; NEUTROPHILS # (AUTO) 3.1 10^3/uL (1.5-6.6); PLT - PLATELET COUNT 271 10^3/uL (130-450); RED BLOOD COUNT 4.42 10^6/uL (4.20-5.40); RED CELL DISTRIBUTION WIDTH 15.1 % (12.0-15.0); WHITE BLOOD COUNT 6.4 x10^3/uL (4.8-10.8)
[2023-06-09 15:25] LABS: THYROID STIMULATING HORMONE 0.82 uIU/mL (0.34-5.60)
[2023-06-09 15:45] LABS: ALBUMIN 3.9 g/dL (3.2-5.5); ALBUMIN/GLOBULIN RATIO 1.3 (1.0-2.2); ALKALINE PHOSPHATASE 75 IU/L (42-121); ALT ALANINE AMINOTRANSFERASE 16 IU/L (10-60); AST ASPARTATE AMINOTRANSFERASE 19 IU/L (10-42); BILIRUBIN,TOTAL 0.7 mg/dL (0.2-1.0); BUN - BLOOD UREA NITROGEN 13 mg/dL (6-20); CALCIUM 9.1 mg/dL (8.5-10.3); CARBON DIOXIDE - CO2 28 mmol/L (21-32); CHLORIDE 105 mmol/L (101-111); CHOL/HDL RATIO 2.4 (<4.4); CHOLESTEROL 198 mg/dL; CREATININE 0.6 mg/dL (0.4-1.0); GFR - MDRD 97 (>89); GLUCOSE 101 mg/dL (70-100); HDL CHOLESTEROL 82 mg/dL; LDL CHOLESTEROL,CALCULATED 101 mg/dL; LDL/HDL RATIO 1.2 (<4.4); POTASSIUM 4.1 mmol/L (3.5-5.0); SODIUM 140 mmol/L (135-145); TRIGLYCERIDES 76 mg/dL; VLDL CHOLESTEROL 15 mg/dL
== END 2023-06-09 08:41 | disposition home or self-care (01) ==
LOC: LAB.S 08:40
PROVIDERS: ATTEND Physician Assistant Medical
DX: E78.5 Hyperlipidemia, unspecified (principal); Z79.899 Other long term (current) drug therapy; Z13.29 Encounter for screening for other suspected endocrine disorder
CPT/HCPCS: 36415; 80053; 80061; 83721; 84443; 85025